=== PATIENT | female | born 1995 | race Caucasian/White ===

== ENCOUNTER 2018-11-25 05:00 | Inpatient (IN) | payer MEDICAID ==
[2018-11-25] MEDS ORDERED: LACTATED RINGER'S 1,000 ML IV (05:20)
[2018-11-25] MEDS ORDERED: LIDOCAINE 1% (MPF) 30 ML INJ INJ (05:30)
[2018-11-25] MEDS ORDERED: MISOPROSTOL 200 MCG TAB PR ×2 (05:30→10:30)
[2018-11-25] MEDS ORDERED: BUTORPHANOL 2 MG INJ IV ×2 (05:30)
[2018-11-25] MEDS ORDERED: METHYLERGONOVINE 0.2 MG INJ IM ×2 (05:30→10:30)
[2018-11-25] MEDS ORDERED: CARBOPROST 250 MCG INJ IM ×2 (05:30→10:30)
[2018-11-25] MEDS ORDERED: OXYTOCIN 30 UNITS/LR 500 ML IV (05:30)
[2018-11-25] MEDS: LACTATED RINGER'S 1,000 ML IV (05:32)
[2018-11-25] MEDS: AMPICILLIN 2 GM/NS (PMX) 100 ML IV (05:32)
[2018-11-25 05:54] LABS: ADD MAN DIFF? NO
[2018-11-25 05:57] LABS: BASOPHILS % 0.1 % (0.0-2.0); EOSINOPHILS # 0.1 10^3/ul (0.0-0.5); HEMATOCRIT 38.4 % (37.0-47.0); HEMOGLOBIN 12.7 g/dl (12.0-16.0); LYMPHOCYTES # 3.3 10^3/ul (0.8-2.9); MEAN CORPUSCULAR HEMOGLOBIN 28.5 pg (29.0-33.0); MEAN CORPUSCULAR HGB CONC 33.1 g/dl (32.0-37.0); MEAN CORPUSCULAR VOLUME 86.3 fl (82.0-101.0); MONOCYTE # 0.4 10^3/ul (0.3-0.9); MONOCYTES % 4.6 % (0.0-11.0); NEUTROPHIL # 5.1 10^3/ul (1.6-7.5); NEUTROPHILS % 56.9 % (39.0-77.0); PLATELET COUNT 130 10^3/UL (140-415); RED BLOOD COUNT 4.45 10^6/ul (4.20-5.40); RED CELL DISTRIBUTION WIDTH 13.3 % (11.5-14.5)
[2018-11-25 06:17] LABS: INR 0.86; PROTIME 11.8 Sec (11.9-14.9); PT RATIO 0.9
[2018-11-25 06:54] LABS: HEPATITIS B SURFACE ANTIGEN NEGATIVE (NEGATIVE)
[2018-11-25] MEDS: OXYTOCIN 30 UNITS/LR 500 ML IV ×3 (07:42→13:00)
[2018-11-25] MEDS: AMPICILLIN 1 GM/NS (PMX) 50 ML IV (09:30)
[2018-11-25] MEDS: IBUPROFEN 600 MG TAB PO ×4 (09:40→23:42)
[2018-11-25] MEDS ORDERED: LANOLIN HPA 1 PKT TOP (10:30)
[2018-11-25] MEDS ORDERED: OXYCODONE/ASPIRIN (4.88/325) TAB PO ×2 (10:30)
[2018-11-25] MEDS ORDERED: ZOLPIDEM 5 MG TAB PO (10:30)
[2018-11-25 11:47] LABS: AMPHETAMINE/METHAMPHETAMINE Negative (NEGATIVE); BARBITURATES Negative (NEGATIVE); BENZODIAZEPINES Negative (NEGATIVE); CANNABINOIDS Negative (NEGATIVE); COCAINE Negative (NEGATIVE); OPIATES Negative (NEGATIVE)
[2018-11-25] MEDS: WITCH HAZEL/GLYCERIN PAD PR (12:58)
[2018-11-25] MEDS: BENZOCAINE 20% 56 ML SPRAY TOP (12:59)
[2018-11-25 16:49] LABS: RAPID PLASMA REAGIN NONREACTIVE (NR)
[2018-11-25] MEDS: SENNA/DOCUSATE NA (8.6MG/50MG) TAB PO (21:54)
[2018-11-26] MEDS: IBUPROFEN 600 MG TAB PO ×3 (05:45→18:04)
[2018-11-26 08:30] LABS: ADD MAN DIFF? NO
[2018-11-26 08:47] LABS: BASOPHILS % 0.3 % (0.0-2.0); EOSINOPHILS # 0.2 10^3/ul (0.0-0.5); EOSINOPHILS % 2.2 % (0.0-7.0); HEMATOCRIT 33.4 % (37.0-47.0); HEMOGLOBIN 10.9 g/dl (12.0-16.0); LYMPHOCYTES # 2.8 10^3/ul (0.8-2.9); LYMPHOCYTES % 30.9 % (15.0-51.0); MEAN CORPUSCULAR HEMOGLOBIN 29.2 pg (29.0-33.0); MEAN CORPUSCULAR HGB CONC 32.6 g/dl (32.0-37.0); MEAN CORPUSCULAR VOLUME 89.5 fl (82.0-101.0); MEAN PLATELET VOLUME 12.6 fl (7.4-10.4); MONOCYTE # 0.3 10^3/ul (0.3-0.9); MONOCYTES % 3.1 % (0.0-11.0); NEUTROPHIL # 5.7 10^3/ul (1.6-7.5); NEUTROPHILS % 62.8 % (39.0-77.0); PLATELET COUNT 121 10^3/UL (140-415); RED BLOOD COUNT 3.73 10^6/ul (4.20-5.40); RED CELL DISTRIBUTION WIDTH 13.5 % (11.5-14.5)
[2018-11-26 08:47] LABS: WHITE BLOOD COUNT 9.1 10^3/ul (4.8-10.8)
[2018-11-26] MEDS: SENNA/DOCUSATE NA (8.6MG/50MG) TAB PO ×2 (11:28→18:03)
[2018-11-27] MEDS: IBUPROFEN 600 MG TAB PO ×2 (00:33→05:40)
[2018-11-27] MEDS: SENNA/DOCUSATE NA (8.6MG/50MG) TAB PO (09:00)
[2018-11-27] MEDS: DIPHTH/TET/ACEL PERTUSS (ADULT) 0.5 ML VIAL IM* (09:00)
== END 2018-11-27 13:14 | disposition home or self-care (01) | DRG 807 ==
LOC: OBT 05:00 → L-D 05:00 → OBT 05:06 → L-D 05:06 → PP1 09:35
PROVIDERS: Obstetrics & Gynecology
PROC: 10E0XZZ Delivery of Products of Conception, External Approach (ICD-10-PCS; principal; 2018-11-25)
DX: O80 Encounter for full-term uncomplicated delivery (principal); Z37.0 Single live birth; Z3A.38 38 weeks gestation of pregnancy
CPT/HCPCS: 80307; 85025; 85610; 85730; 86592; 86850; 86900; 86901; 87340